=== PATIENT | female | born 1975 | race Caucasian/White ===

== ENCOUNTER 2020-10-09 12:22 | Outpatient (CLI) | payer BC, SELFPAY ==
--- NOTE | ~2020-10-09 | MM_ITS ---
EXAMINATION: MM screening rose BI w niurka HISTORY: Screening mammogram TECHNIQUE: Craniocaudal and mediolateral oblique 3-D tomosynthesis images were obtained and synthetic 2-D images were generated. CAD analysis was submitted and interpreted. COMPARISON: 07/19/2019, 07/07/2018, 07/27/2016 bilateral digital screening mammogram examinations BREAST PARENCHYMAL COMPOSITION: There are scattered areas of fibroglandular density. FINDINGS: There is no evidence of suspicious mass, calcification, or architectural distortion to sugg est malignancy in either breast. There has been no suspicious interval change. IMPRESSION: 1. No mammographic evidence of malignancy. 2. Recommend routine screening mammography in one year. BI-RADS Category 1: Negative Reviewed, dictated and finalized at location A. LVENCY PRACTITIONER
== END 2020-10-09 12:23 | disposition home or self-care (01) ==
PROVIDERS: PCP Nurse Practitioner Psychiatric/Mental Health; Visit Provider Nurse Practitioner Obstetrics & Gynecology
DX: Z12.31 Encounter for screening mammogram for malignant neoplasm of breast (principal)
CPT/HCPCS: 77063; 77067

== ENCOUNTER 2021-10-24 10:45 | Outpatient (CLI) | payer BC, SELFPAY ==
--- NOTE | ~2021-10-24 | MM_ITS ---
EXAMINATION: MM screening rose BI w niurka HISTORY: Screening TECHNIQUE: Craniocaudal and mediolateral oblique 3-D tomosynthesis images were obtained and synthetic 2-D images were generated. CAD analysis was submitted and interpreted. COMPARISON: Comparison to multiple prior studies sequentially, with oldest reviewed study dated 07/27. BREAST PARENCHYMAL COMPOSITION: There are scattered areas of fibroglandular density. FINDINGS: There is no evidence of suspicious mass, calcification, or architectural distortion to sugg est malignancy in either breast. There has been no suspicious interval change. IMPRESSION: 1. No mammographic evidence of malignancy. 2. Recommend routine screening mammography in one year. BI-RADS Category 1: Negative Reviewed, dictated and finalized at location A. MIXER
== END 2021-10-24 10:46 | disposition home or self-care (01) ==
LOC: CHSIMG 10:46
PROVIDERS: PCP Nurse Practitioner Psychiatric/Mental Health; Visit Provider Nurse Practitioner Obstetrics & Gynecology
DX: Z12.31 Encounter for screening mammogram for malignant neoplasm of breast (principal)
CPT/HCPCS: 77063; 77067

== ENCOUNTER 2022-10-26 12:48 | Outpatient (CLI) | payer BC, SELFPAY ==
--- NOTE | ~2022-10-26 | MM_ITS ---
EXAMINATION: MM screening rose BI w niurka HISTORY: Screening TECHNIQUE: Craniocaudal and mediolateral oblique 3-D tomosynthesis images were obtained and synthetic 2-D images were generated. CAD analysis was submitted and interpreted. COMPARISON: Comparison to multiple prior studies sequentially, with oldest reviewed study dated 07/27. BREAST PARENCHYMAL COMPOSITION: There are scattered areas of fibroglandular density. FINDINGS: There is a new 4 mm mass anteriorly and laterally in the left breast on CC view. The right breast is stable without evidence for malignancy. IMPRESSION: 1. New 4 mm left breast mass. 2. Additional mammographic views and possible breast ultrasound are recommended. BI-RADS Category 0: Incomplete: Needs additional imaging evaluation. Reviewed, dictated and finalized at location A. ANALYST IMPRESSION: 1. New 4 mm left breast mass. 2. Additional mammographic views and possible breast ultrasound are recommended . BI-RADS Category 0: Incomplete: Needs additional imaging evaluation.
== END 2022-10-26 12:49 | disposition home or self-care (01) ==
LOC: CHSIMG 12:51
PROVIDERS: PCP Registered Nurse; Visit Provider Nurse Practitioner Obstetrics & Gynecology
DX: Z12.31 Encounter for screening mammogram for malignant neoplasm of breast (principal); R92.8 Other abnormal and inconclusive findings on diagnostic imaging of breast
CPT/HCPCS: 77063; 77067

== ENCOUNTER 2022-12-07 07:20 | Outpatient (CLI) | payer BC, SELFPAY ==
--- NOTE | ~2022-12-07 | US_ITS ---
EXAMINATION: US retroperitoneal comp DATE: 12/07/2022 08:26 INDICATION: Elevated creatinine TECHNIQUE: Multiple grayscale and Doppler ultrasound images of the kidneys were obtained. COMPARISON: None. FINDINGS: The right kidney measures 10.3 x 3.7 x 5.0 cm. The left kidney measures 8.5 x 4.5 x 4.6 cm and contains cysts measuring up to 10 mm. The kidneys demonstrate normal parenchymal echogenicity. Th ere is no hydronephrosis. The bladder is normal. IMPRESSION: 1. Unremarkable kidneys without hydronephrosis. Reviewed, dictated and finalized at location B. TY HOME DEMONSTRATION AGENT
== END 2022-12-07 07:21 | disposition home or self-care (01) ==
LOC: CHSIMG 07:21
PROVIDERS: PCP Registered Nurse; Visit Provider Registered Nurse
DX: R79.89 Other specified abnormal findings of blood chemistry (principal)
CPT/HCPCS: 76770

== ENCOUNTER 2023-05-31 08:48 | Outpatient (CLI) | payer BC, SELFPAY ==
--- NOTE | ~2023-05-31 | MMUS_ITS ---
EXAMINATION: MM diagnostic rose LT w niurka, US breast LT limited HISTORY: Six-month follow-up for probably benign left breast mass TECHNIQUE: Craniocaudal, mediolateral, and mediolateral oblique 3-D tomosynthesis images of the left breast were performed and synthetic 2-D images were generated. CAD analysis was submitted and interpr eted. High resolution limited left breast ultrasound was performed. COMPARISON: 11/26/2022, 10/26/2022, 10/24/2021 BREAST PARENCHYMAL COMPOSITION: There are scattered areas of fibroglandular density. FINDINGS: MAMMOGRAPHIC FINDINGS: There is a stable 4 mm oval, circumscribed, equal density mass in the anterior third of the slightly outer breast approximately 3 cm from the nipple. With spot compression, the mass has a stable appeara nce dating back to the October 2021 comparison. ULTRASOUND: There is a stable 4 mm oval, circumscribed, parallel, hypoechoic mass with no posterior features or i nternal vascularity at the 12:00 location near the mobile. IMPRESSION: 1. Stable, probably benign left breast mass. 2. Recommend 6 month follow-up bilateral diagnostic mammogram and targeted left breast ultrasound to establish two years of stability. BI-RADS category 3, probably benign findings. Reviewed, dictated and finalized at location D. IMPRESSION: 1. Stable, probably benign left breast mass. 2. Recommend 6 month follow-up bilateral diagnostic mammogram and targeted left breast ultrasound to establish two years of stability. BI-RADS category 3, probably benign findings.
== END 2023-05-31 08:49 | disposition home or self-care (01) ==
LOC: CHSIMG 08:50
PROVIDERS: PCP Registered Nurse; Visit Provider Registered Nurse
DX: R92.8 Other abnormal and inconclusive findings on diagnostic imaging of breast (principal)
CPT/HCPCS: 76642; 77061; 77065; G0279

== ENCOUNTER 2024-06-01 08:52 | Outpatient (CLI) | payer BC, SELFPAY ==
--- NOTE | ~2024-06-01 | MMUS_ITS ---
EXAMINATION: MM diagnostic rose BI w niurka, US breast LT limited HISTORY: Follow-up left breast mass TECHNIQUE: Additional 3-D tomosynthesis images of the breasts were performed and synthetic 2-D images were generated. CAD analysis was submitted and interpreted. High resolution Limited left breast ultr asound was performed. COMPARISON: Comparison to multiple prior studies sequentially, with oldest reviewed study dated 12/2019. BREAST PARENCHYMAL COMPOSITION: Not Dense: Breast are almost entirely fatty. FINDINGS: MAMMOGRAPHIC FINDINGS: The breasts are stable. No new masses, calcifications or architectural distortion to suggest malignan cy. ULTRASOUND: Limited left breast ultrasound: At 12:00 near the nipple there is a slightly irregular shaped hypoech oic 7 mm mass with posterior shadowing which is slightly increased in size with increased shadowing c ompared with prior examination. IMPRESSION: 1. Suspicious left breast mass 12:00 near the nipple measuring 7 mm. No definite mammographic correla te. 2. Ultrasound-guided left breast biopsy recommended. BI-RADS category 4, suspicious findings. Reviewed, dictated and finalized at location B. IMPRESSION: 1. Suspicious left breast mass 12:00 near the nipple measuring 7 mm. No definit e mammographic correlate. 2. Ultrasound-guided left breast biopsy recommended. BI-RADS category 4, suspicious findings.
== END 2024-06-01 08:53 | disposition home or self-care (01) ==
PROVIDERS: PCP Registered Nurse; Visit Provider Registered Nurse
DX: R92.8 Other abnormal and inconclusive findings on diagnostic imaging of breast (principal)
CPT/HCPCS: 76642; 77062; 77066; G0279

== ENCOUNTER 2024-07-31 09:23 | Outpatient (CLI) | payer BC, SELFPAY ==
--- NOTE | ~2024-07-31 | US_ITS ---
US breast LT limited INDICATION: Left breast mass seen on prior examination. Ultrasound-guided biopsy requested. TECHNIQUE: Dedicated Limited left breast ultrasound COMPARISON: 06/01/2024 BREAST DENSITY: [ Not Dense: The breasts are almost entirely fatty. ] FINDINGS: The left breast is/are composed of normal heterogeneous echotexture without focal solid or cystic mass. The mass seen on prior examination is not appreciated on the current study, possibly art ifact. IMPRESSION: 1: Normal limited left breast ultrasound. BI-RADS CATEGORY 3-PROBABLY BENIGN FINDING RECOMMENDATION: 6 month follow-up Limited left breast ultrasound recommended. Reviewed, dictated and finalized at location B.
== END 2024-07-31 09:24 | disposition home or self-care (01) ==
LOC: ANHIMG 09:25
PROVIDERS: PCP Registered Nurse; Visit Provider Registered Nurse
DX: N63.20 Unspecified lump in the left breast, unspecified quadrant (principal); R92.8 Other abnormal and inconclusive findings on diagnostic imaging of breast
CPT/HCPCS: 76642

== ENCOUNTER 2025-08-21 12:23 | Outpatient (CLI) | payer BC, SELFPAY ==
--- NOTE | ~2025-08-21 | MM_ITS ---
EXAMINATION: MM screening rose BI w niurka HISTORY: Screening TECHNIQUE: Craniocaudal and mediolateral oblique 3-D tomosynthesis images were obtained and synthetic 2-D images were generated. CAD analysis was submitted and interpreted. COMPARISON: 10/26/2022 BREAST PARENCHYMAL COMPOSITION: Not Dense: The breasts are almost entirely fatty. FINDINGS: There is no evidence of suspicious mass, calcification, or architectural distortion to suggest malignancy. There has been no suspicious interval change. IMPRESSION: 1. No mammographic evidence of malignancy. Recommend routine screening mammography in one year. BI-RADS Category 2: Benign finding(s) Reviewed, dictated and finalized at location Q. IMPRESSION: 1. No mammographic evidence of malignancy. Recommend routine screening mammogra phy in one year. BI-RADS Category 2: Benign finding(s)
== END 2025-08-21 12:24 | disposition home or self-care (01) ==
LOC: CHSIMG 12:26
PROVIDERS: PCP Registered Nurse; Visit Provider Registered Nurse
DX: Z12.31 Encounter for screening mammogram for malignant neoplasm of breast (principal)
CPT/HCPCS: 77063; 77067